=== PATIENT | female | born 1975 | race Caucasian/White ===

== ENCOUNTER → 2016-08-24 | Outpatient (CLI) | payer BC ==
--- NOTE | 2016-08-24 08:48 | US ---
EXAMINATION TYPE: US abdomen complete DATE OF EXAM: 08/24/2016 8:34 AM COMPARISON: NONE CLINICAL HISTORY: Abd Pain R10.9. posterior rt sided pain that radiates anteriorly, worse with some f oods EXAM MEASUREMENTS: Liver Length: 13.3 cm Gallbladder Wall: 0.2 cm CBD: 0.6 cm Spleen: 9.6 cm Right Kidney: 9.5 x 3.5 x 4.7 cm Left Kidney: 9.2 x 5.3 x 5.4 cm Findings: Pancreas: wnl Liver: wnl Gallbladder: wnl Evidence for sonographic Zaragoza's sign: no CBD: upper limits in size, otherwise wnl Spleen: wnl Right Kidney: 0.5cm echogenic foci at the mid to lower pole Left Kidney: wnl Upper IVC: wnl Abd Aorta: wnl The liver is homogenous. The intrahepatic portion of the IVC and proximal abdominal aorta are within normal limits. There is no evidence of cholelithiasis. Common bile duct is unremarkable. The visu alized portions of the pancreas are homogenous. The spleen is unremarkable. Kidneys are symmetric a nd free of hydronephrosis. No renal lesions are seen. Small nonobstructing right-sided renal calculu s. IMPRESSION: 1.Small nonobstructing right-sided renal calculus.
== END | disposition home or self-care (01) ==
LOC: RADUSWWP 08:08
PROVIDERS: ATTEND Family Medicine
DX: N20.0 Calculus of kidney (principal)
CPT/HCPCS: 76700

== ENCOUNTER 2016-08-30 08:52 | Day surgery (SDC) | payer BC ==
[2016-08-24 15:30] VITALS: BMI 23.1
[~2016-08-30 08:52] MED LIST: LACTATED RINGERS 1,000 ML IV SCH; LIDOCAINE 1% 20 ML VIAL (10MG/ML) FOR IV START INTRADERMA PRN
[2016-08-30 09:22] VITALS: RESP 16; TEMP 98.4
[2016-08-30] MEDS ORDERED: GLYCOPYRROLATE 0.2 MG/ML 2 ML VIAL ONE (10:10)
[2016-08-30] MEDS ORDERED: LIDOCAINE 1% INJ 10MG/ML (20 ML MDV) ONE (10:10)
[2016-08-30] MEDS ORDERED: diphenhydrAMINE 50 MG/ML 1 ML VIAL ONE (10:10)
[2016-08-30] MEDS ORDERED: PROPOFOL 10 MG/ML 20 ML VIAL IV ONE (10:10)
--- NOTE | 2016-08-30 10:59 | P.PCN ---
Date of Procedure: 08/30/16 Procedure(s) Performed: Procedure: 1. Esophagogastroduodenoscopy and biopsy. 2. Total colonoscopy. Preoperative diagnosis: Abdominal pain and reflux symptoms and family history of colon cancer reviewed Postoperative diagnosis: 1. Small sliding hiatal hernia with no obvious esophagitis or complicated reflux disease. 2. Mild antral gastritis and mild duodenitis. 3. Diverticulosis of the colon with no evidence of acute diverticulitis, strictures, polyps or cancer. Preparation: HalfLytely prep. Sedation: Was provided by anesthesia. Brief clinical history: The patient is a 40-year-old female who is referred for this evaluation because of abdominal pain and reflux over the last year as well as family history of colon cancer in her father who was diagnosed in his early 50s. The patient has no lower abdominal complaints, bleeding or anemia. This would be her first upper endoscopy and colonoscopy. Procedure: With the patient on her left lateral decubitus position and after informed consent and adequate sedation, I passed the Olympus-GIF 160 video upper endoscope through the cricopharyngeus down the esophagus. GE junction was around 38 cm from the incisors and there was a small less than 1 cm sliding hiatal hernia. The esophagus did not show any obvious erosions or ulcers. There were no strictures or Powell's esophagus. The endoscope was then passed into the stomach which was insufflated with air and inspected in detail including the retroflex view in the cardia. There was some mottling and erythema in the antrum but no ulcers or erosions. Pyloric channel did not show any ulcers. Duodenal bulb showed minimal erythema and friability but no ulcers or erosions. Post bulbar area and descending duodenum showed minimal erythema. I obtained biopsies from the duodenum, antrum and esophagus then the endoscope was withdrawn and I proceeded with the colonoscopy. Perianal area did not show any fissures or fistulas. There were no masses felt on digital rectal examination. The Olympus CFQ 160L video colonoscope was then inserted in the rectum in the usual fashion and advanced to the cecum. The mucosa appeared healthy. There were few diverticular orifices seen scattered in the sigmoid and few more around the hepatic flexure and on the right side with no evidence of acute diverticulitis or strictures. No polyps or tumors were seen. I retroflexed endoscope in the rectum before the endoscope was withdrawn. The patient tolerated the procedure well. Plan: The patient was reassured. Will await biopsy results. She will follow- up with you as planned. With her family history of colon cancer, I recommended repeat colonoscopy in 5 years.
[2016-08-30 11:34] VITALS: BP 124/73; PULSE 70
== END 2016-08-30 11:40 | disposition home or self-care (01) ==
LOC: ORWHC2ENDO 08:52
DX: Z12.11 Encounter for screening for malignant neoplasm of colon (principal); Z80.0 Family history of malignant neoplasm of digestive organs; K29.50 Unspecified chronic gastritis without bleeding; K44.9 Diaphragmatic hernia without obstruction or gangrene; K29.80 Duodenitis without bleeding; K57.30 Diverticulosis of large intestine without perforation or abscess without bleeding; K21.0 Gastro-esophageal reflux disease with esophagitis; Z79.899 Other long term (current) drug therapy; Z88.0 Allergy status to penicillin; Z91.09 Other allergy status, other than to drugs and biological substances
CPT/HCPCS: 81025; 88305; 88342; 43239; J1200; J2001; J2704; G0105; 45378; 99153

== ENCOUNTER → 2017-03-08 | Outpatient (CLI) | payer BC ==
--- NOTE | 2017-03-12 09:40 | MM ---
Reason for exam: screening (asymptomatic). Last mammogram was performed 8 years and 3 months ago. History: Family history of breast cancer in 2 maternal cousins. Took hormonal contraceptives for 10 years beginning at age 15. Physical Findings: A clinical breast exam by your physician is recommended on an annual basis and results should be correlated with mammographic findings. MG Screening Mammo w CAD Bilateral CC and MLO view(s) were taken. Prior study comparison: December 27, 2015, mammogram, performed at [facility]. September 20, 2014, mammogram, performed at [facility]. November 22, 2008, bilateral digital screening mammogram. The breast tissue is heterogeneously dense. This may lower the sensitivity of mammography. Finding: There are typically benign round calcifications in the right breast. There is a chronic nodularity in the left breast. There is no discrete abnormality. ASSESSMENT: Benign, BI-RAD 2 RECOMMENDATION: Routine screening mammogram of both breasts in 1 year.
== END | disposition home or self-care (01) ==
LOC: RADMAMWWP 08:21
PROVIDERS: ATTEND Obstetrics & Gynecology
DX: Z12.31 Encounter for screening mammogram for malignant neoplasm of breast (principal)

== ENCOUNTER → 2018-04-01 | Outpatient (CLI) | payer BC ==
[2018-04-01 16:20] VITALS: BP 125/59; PULSE 61; RESP 16; TEMP 99; BMI 23.8
--- NOTE | 2018-04-01 17:27 | P.HPOB ---
History of Present Illness H&P Date: 04/01/18 Chief Complaint: The patient is here for her routine gynecologic exam and mammogram. This is a 42-year-old G3 PIII with an LMP of 03/24/2018. The patient's is status post vasectomy. The patient is here to reestablish with this office. It has been about 14 months since her last pelvic exam and about 5 years since she was last seen here for her gynecologic exam. She is without gynecologic complaints. She states her menses are regular every month and are getting shorter. Her menses are typically lasting about 3 days. She denies any intermenstrual bleeding. Review of Systems She is getting about 12 pounds over the last 5 years. She denies respiratory, cardiac, or G.I. problems. Past Medical History Past Medical History: GERD/Reflux Additional Past Medical History / Comment(s): Kidney stones in the past. 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 History of Any Multi-Drug Resistant Organisms: None Reported Past Surgical History: No Surgical Hx Reported Additional Past Surgical History / Comment(s): wisdom teeth. Colonoscopy 2017 Past Anesthesia/Blood Transfusion Reactions: No Reported Reaction Past Psychological History: Anxiety, Depression Smoking Status: Never smoker Past Alcohol Use History: Occasional (2 per week) Past Drug Use History: None Reported Additional History: She has been since 1994. 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 - Past Family History Mother Family Medical History: Cancer (Lung cancer) Additional Family Medical History / Comment(s): 2 Maternal cousins had breast cancer Father Family Medical History: Cancer (colon) Medications and Allergies Home Medications Medication Instructions Recorded Confirmed Type Cholecalciferol [Vitamin D3] 1,000 unit PO DAILY 04/01/18 04/01/18 History Citalopram Hydrobromide [CeleXA] 10 mg PO DAILY 04/01/18 04/01/18 History Multivitamins, Thera [Multivitamin 1 tab PO DAILY 04/01/18 04/01/18 History (formulary)] Allergies Allergy/AdvReac Type Severity Reaction Status Date / Time morphine AdvReac Nausea & Verified 08/30/16 09:22 Vomiting Penicillins AdvReac Rash/Hives Verified 08/30/16 09:22 Exam Vital Signs Temp Pulse Resp BP 04/01/18 16:08 99 F 61 16 125/59 Intake and Output 04/01/18 04/01/18 04/01/18 06:59 14:59 22:59 Other: Weight 63.049 kg Height 5'4", BMI 23.9. This is a well-developed well-nourished white female who is alert and oriented times 3 in no acute distress. HEENT: Within normal limits. NECK: Supple without mass or thyromegaly. CHEST AND LUNGS: Clear to auscultation. HEART: Regular rate and rhythm. BREASTS: Are without mass or discharge. AXILLARY EXAM: Negative for adenopathy. BACK: Negative for CVA tenderness. ABDOMEN: Soft, nontender, without palpable masses. PELVIC EXAM: Normal external genitalia. Cervix: endocervical polyp measuring approximately 6 x 8 mm with a darker red appearance. The vagina appear normal. There is no unusual discharge. There is no evidence of prolapse. The uterus is anterior, nongravid size and nontender. There are no palpable adnexal masses or tenderness. RECTAL EXAM: negative for mass or tenderness and is negative for occult blood. EXTREMITIES: Nontender. IMPRESSION: 1. 42-year-old female whose status post vasectomy with small endocervical polyp on exam today. 2. Otherwise unremarkable gynecologic exam. PLAN: 1. Pap smear was performed. 2. Self breast awareness was discussed with the patient. 3. Screening mammogram will be done today. 4. We have discussed options for the endocervical polyp including observation versus office removal. The patient would like to have this removed. She will make an appointment for its removal. We will also send it for pathological examination. 5. Osteoporosis prevention was discussed. 6. She will return in one year as well.
--- NOTE | 2018-04-03 09:01 | MM ---
Reason for exam: screening (asymptomatic). Last mammogram was performed 1 year and 1 month ago. History: Family history of breast cancer in 2 maternal cousins. Took hormonal contraceptives for 10 years beginning at age 15. Physical Findings: A clinical breast exam by your physician is recommended on an annual basis and results should be correlated with mammographic findings. MG 3D Screening Mammo W/Cad Bilateral CC and MLO view(s) were taken. Prior study comparison: March 08, 2017, bilateral MG screening mammo w CAD. December 27, 2015, mammogram, performed at [facility]. The breast tissue is heterogeneously dense. This may lower the sensitivity of mammography. No significant changes when compared with prior studies. ASSESSMENT: Benign, BI-RAD 2 RECOMMENDATION: Routine screening mammogram of both breasts in 1 year.
== END | disposition home or self-care (01) ==
LOC: WWCWWP 16:00
PROVIDERS: ATTEND Obstetrics & Gynecology
DX: Z12.31 Encounter for screening mammogram for malignant neoplasm of breast (principal)
CPT/HCPCS: 77063; 77067

== ENCOUNTER → 2018-04-09 | Day surgery (SDC) | payer BC ==
[2018-04-09 08:19] VITALS: BP 113/57; PULSE 57; TEMP 97.9; BMI 23.8
--- NOTE | 2018-04-09 08:51 | P.PCN ---
Date of Procedure: 04/09/18 Preoperative Diagnosis: endoervical polyp Postoperative Diagnosis: Same Procedure(s) Performed: Endocervical polyp removal Anesthesia: none Surgeon: Lew Tavares Estimated Blood Loss (ml): 0 Pathology: other (Endocervical polyp) Condition: stable Disposition: same day Indications for Procedure: This was a 42-year-old female who was found to have an endocervical polyp on her routine gynecologic exam. Operative Findings: Approximately 10 x 7 x 4 mm endocervical polyp was found. The rest of the cervix appeared normal. Description of Procedure: The procedure was discussed with the patient. Possible risks including infection and bleeding were reviewed with the patient. All questions were answered. The patient was placed in the lithotomy position and the speculum was inserted into the vagina. Betadine solution was applied to the cervix and vagina. A ring forcep instrument was used to grasp the entire visible polyp and the polyp was twisted off. A Kevorkian curette was used to gently scrape the Endo cervix from the approximate area where it was attached. There was no bleeding. The patient tolerated the procedure well. Polyp was sent for pathological evaluation. There were no complications.
--- NOTE | 2018-04-09 08:54 | P.PN ---
Progress Note - Text Progress Note Date: 04/09/18 OUTPATIENT FOLLOW-UP NOTE TEST(S)/RESULTS: Pap smear from 04/01/2018 was negative. METHOD OF NOTIFICATION: the patient was notified in person. PATIENT COMMENTS: the patient has no questions about this. DIAGNOSIS: negative Pap smear DISCUSSION: the patient underwent an endocervical polyp removal today. Please see that procedure note for details. PLAN: she will return one year.
--- NOTE | 2018-04-15 11:38 | P.PN ---
Progress Note - Text Progress Note Date: 04/15/18 OUTPATIENT FOLLOW-UP NOTE TEST(S)/RESULTS: cervical polyp removal done on 04/09/2018 had a benign pathology METHOD OF NOTIFICATION: patient was notified by phone. PATIENT COMMENTS: the patient understands the results. She denies any problems after the procedure. She stated she did started. Shortly after the procedure. DIAGNOSIS: benign endocervical polyp. DISCUSSION: PLAN: she will return in one year.
== END ==
LOC: WWCWWP 08:08
PROVIDERS: ATTEND Obstetrics & Gynecology
DX: Z53.9 Procedure and treatment not carried out, unspecified reason (principal)
CPT/HCPCS: 88305

== ENCOUNTER → 2019-04-07 | Outpatient (CLI) | payer BC ==
[2019-04-07 09:33] VITALS: BP 105/76; PULSE 72; RESP 16; TEMP 98; BMI 24.2
--- NOTE | 2019-04-07 10:09 | P.HPOB ---
History of Present Illness H&P Date: 04/07/19 Chief Complaint: The patient is here for her routine gynecologic exam and ma mmogram. This is a 43 year old G3 PIII with an LMP of 03/31/2019. The patient's is status post vasectomy. The patient states she has noticed a slight vaginal discharge and slight odor intermittently over the past 2 months. She thinks she may have bacterial vaginosis which she had once before. She has slight pruritus. The discharge is thin and occasionally yellowish in appearance. She denies any new sexual partners. She is otherwise without complaints. Review of Systems The patient's weight has been stable over the last year. She denies respiratory, cardiac, or G.I. problems. Past Medical History Past Medical History: GERD/Reflux Additional Past Medical History / Comment(s): Kidney stones in the past. 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 History of Any Multi-Drug Resistant Organisms: None Reported Past Surgical History: No Surgical Hx Reported Additional Past Surgical History / Comment(s): wisdom teeth. Colonoscopy 2017 Past Anesthesia/Blood Transfusion Reactions: No Reported Reaction Past Psychological History: Anxiety, Depression Smoking Status: Never smoker Past Alcohol Use History: Occasional (2 or 3 per week.) Past Drug Use History: None Reported Additional History: She has been since 1994. 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 - Past Family History Mother Family Medical History: Cancer Additional Family Medical History / Comment(s): Lung cancer. 2 Maternal cousins had breast cancer Father Family Medical History: Cancer Additional Family Medical History / Comment(s): Colon cancer. Medications and Allergies Home Medications Medication Instructions Recorded Confirmed Type Cholecalciferol [Vitamin D3] 1,000 unit PO DAILY 04/01/18 04/07/19 History Multivitamins, Thera [Multivitamin 1 tab PO DAILY 04/01/18 04/07/19 History (formulary)] Allergies Allergy/AdvReac Type Severity Reaction Status Date / Time morphine AdvReac Nausea & Verified 04/07/19 09:18 Vomiting Penicillins AdvReac Rash/Hives Verified 04/07/19 09:18 Exam Vital Signs Temp Pulse Resp BP Pulse Ox 04/07/19 09:20 98.0 F 72 16 105/76 99 Height 5'4", weight 141 pounds, BMI 24.2. This is a well-developed well-nourished white female who is alert and oriented times 3 in no acute distress. HEENT: Within normal limits. NECK: Supple without mass or thyromegaly. CHEST AND LUNGS: Clear to auscultation. HEART: Regular rate and rhythm. BREASTS: Are without mass or discharge. AXILLARY EXAM: Negative for adenopathy. BACK: Negative for CVA tenderness. ABDOMEN: Soft, nontender, without palpable masses. PELVIC EXAM: Normal external genitalia. Cervix and vagina appear normal. There is no evidence of a cervical polyp. There is a small thin mucousy discharge without significant odor. There is no evidence of prolapse. The uterus is midposition, nongravid size and nontender. There are no palpable adnexal masses or tenderness. RECTAL EXAM: negative for mass or tenderness and is negative for occult blood. EXTREMITIES: Nontender. IMPRESSION: 1. 43 year old female with probable mild bacterial vaginosis with intermittent vaginal odor and slight vaginal discharge today. 2. Otherwise unremarkable gynecologic exam. 3. The patient's is status post vasectomy. PLAN: 1. Pap smear was deferred since she had normal one on 03/24/2018. 2. Self breast awareness was discussed with the patient. 3. Screening mammogram will be done today. 4. The patient will be treated with MetroGel veg. She will insert one applicator intravaginally QHS times 5 days. The electronic prescription will be sent to [facility] pharmacy in [place]. She will call if her symptoms do not improve, or if problems. 5. She was advised to return in one year for her annual well woman exam.
--- NOTE | 2019-04-08 09:44 | MM ---
Reason for exam: screening (asymptomatic). Last mammogram was performed 1 year ago. History: Family history of breast cancer in 2 maternal cousins. Took hormonal contraceptives for 10 years beginning at age 15. Physical Findings: A clinical breast exam by your physician is recommended on an annual basis and results should be correlated with mammographic findings. MG 3D Screening Mammo W/Cad Bilateral CC and MLO view(s) were taken. XCCL view(s) were taken of the right breast. Prior study comparison: April 01, 2018, bilateral MG 3d screening mammo w/cad. March 08, 2017, bilateral MG screening mammo w CAD. The breast tissue is heterogeneously dense. This may lower the sensitivity of mammography. There is a 7mm right upper outer quadrant mass 5cm from nipple. No suspicious abnormality on the left. ASSESSMENT: Incomplete: need additional imaging evaluation, BI-RAD 0 RECOMMENDATION: Ultrasound of the right breast. (upper outer quadrant) [facility] will attempt to contact patient to return for ultrasound.
== END | disposition home or self-care (01) ==
LOC: WWCWWP 09:07
PROVIDERS: ATTEND Obstetrics & Gynecology
DX: Z12.31 Encounter for screening mammogram for malignant neoplasm of breast (principal)
CPT/HCPCS: 77063; 77067

== ENCOUNTER → 2019-04-15 | Outpatient (CLI) | payer BC ==
--- NOTE | 2019-04-15 09:40 | USB ---
Reason for exam: additional evaluation requested from abnormal screening. History: Family history of breast cancer in 2 maternal cousins. Took hormonal contraceptives for 10 years beginning at age 15. Physical Findings: Nurse did not find any significant physical abnormalities on exam. US Breast Workup Limited RT Right limited breast ultrasound including focal area of concern, retroareolar and axilla demonstrates a 0.8 x 0.8 x 0.5cm mixed lesion at 10 o'clock, complicated cyst with good increased through transmission. Correlates with mammogram. These results were verbally communicated with the patient and result sheet given to the patient on 04/15/19. ASSESSMENT: Benign, BI-RAD 2 RECOMMENDATION: Return to routine screening mammogram schedule for both breasts.
== END | disposition home or self-care (01) ==
LOC: RADUSWWP 06:49
PROVIDERS: ATTEND Obstetrics & Gynecology
DX: R92.8 Other abnormal and inconclusive findings on diagnostic imaging of breast (principal)

== ENCOUNTER → 2020-04-26 | Outpatient (CLI) | payer BC ==
--- NOTE | 2020-04-28 10:40 | MM ---
Reason for exam: screening (asymptomatic). Last mammogram was performed 1 year and 1 month ago. History: Family history of breast cancer in 2 maternal cousins. Took hormonal contraceptives for 10 years beginning at age 15. Physical Findings: A clinical breast exam by your physician is recommended on an annual basis and results should be correlated with mammographic findings. MG 3D Screening Mammo W/Cad Bilateral CC, MLO, and XCCL view(s) were taken. Prior study comparison: April 07, 2019, bilateral MG 3d screening mammo w/cad. April 01, 2018, bilateral MG 3d screening mammo w/cad. Focal asymmetry right outer middle CC view, possible summation. ASSESSMENT: Incomplete: need additional imaging evaluation, BI-RAD 0 RECOMMENDATION: Special view mammogram of the right breast. If lesion persists on supplemental views, image directed ultrasound is recommended. [facility] will attempt to contact patient to return for supplemental views and ultrasound if indicated.
== END | disposition home or self-care (01) ==
LOC: RADMAMWWP 16:08
PROVIDERS: ATTEND Obstetrics & Gynecology
DX: Z12.31 Encounter for screening mammogram for malignant neoplasm of breast (principal)
CPT/HCPCS: 77063; 77067

== ENCOUNTER → 2020-04-26 | Outpatient (CLI) | payer BC ==
[2020-04-26 15:36] VITALS: BP 127/71; PULSE 83; RESP 18; TEMP 98.7
--- NOTE | 2020-04-26 16:17 | P.HPOB ---
History of Present Illness H&P Date: 04/26/20 Chief Complaint: The patient is here for her routine gynecologic exam and ma mmogram. This is a 44-year-old with an LMP of 04/07/2020. The patient has been noticing mild changes in her body and menstrual cycle. Menses seem fairly regular each month and are now lasting about 2-3 days which is shorter than in the past. She tends to get a bit emotional right before her menstrual period starts and then it improves. She has noticed occasional warm flashes which are not very severe or predictable. She can have 1 heavier day of flow occasionally. Her is status post vasectomy. She is otherwise without complaints. Review of Systems The patient's weight has been stable over the last year. She denies respiratory, cardiac, or G.I. problems. Past Medical History Past Medical History: GERD/Reflux Additional Past Medical History / Comment(s): Kidney stones in the past. 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 History of Any Multi-Drug Resistant Organisms: None Reported Past Surgical History: Appendectomy Additional Past Surgical History / Comment(s): wisdom teeth. Appendectomy with umbilical hernia repair 12/2019. Colonoscopy 2017(next after 5yr). Past Anesthesia/Blood Transfusion Reactions: No Reported Reaction Past Psychological History: Anxiety, Depression Smoking Status: Never smoker Past Alcohol Use History: Occasional (3 per week) Past Drug Use History: None Reported Additional History: She has been since 1994. 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 - Past Family History Mother Family Medical History: Cancer Additional Family Medical History / Comment(s): Lung cancer. 2 Maternal cousins had breast cancer Father Family Medical History: Cancer Additional Family Medical History / Comment(s): Colon cancer. Medications and Allergies Home Medications Medication Instructions Recorded Confirmed Type Cholecalciferol [Vitamin D3] 1,000 unit PO DAILY 04/01/18 04/26/20 History Multivitamins, Thera [Multivitamin 1 tab PO DAILY 04/01/18 04/26/20 History (formulary)] Allergies Allergy/AdvReac Type Severity Reaction Status Date / Time morphine AdvReac Nausea & Verified 04/26/20 15:36 Vomiting Penicillins AdvReac Rash/Hives Verified 04/26/20 15:36 Exam Vital Signs Temp Pulse Resp BP Pulse Ox 04/26/20 15:30 98.7 F 83 18 127/71 99 Intake and Output 04/26/20 04/26/20 04/26/20 06:59 14:59 22:59 Other: Weight 64.41 kg Height 5 feet 4 inches, weight 142 pounds, BMI 24.4. This is a well-developed well-nourished white female who is alert and oriented times 3 in no acute distress. HEENT: Within normal limits. NECK: Supple without mass or thyromegaly. CHEST AND LUNGS: Clear to auscultation. HEART: Regular rate and rhythm. BREASTS: Are without mass or discharge. AXILLARY EXAM: Negative for adenopathy. BACK: Negative for CVA tenderness. ABDOMEN: Soft, nontender, without palpable masses. PELVIC EXAM: Normal external genitalia. Cervix and vagina appear normal. There is no unusual discharge. There is no evidence of prolapse. The uterus is midposition, nongravid size and nontender. There are no palpable adnexal masses or tenderness. RECTAL EXAM: negative for mass or tenderness and is negative for occult blood. EXTREMITIES: Nontender. IMPRESSION: 1. 44-year-old premenopausal female whose is status post vasectomy with some mild symptoms that may indicate very early perimenopausal changes. 2. Normal gynecologic exam. PLAN: 1. Pap smear was performed. 2. Self breast awareness was discussed with the patient. 3. Screening mammogram will be done today. 4. Osteoporosis prevention was discussed. I have stressed the importance of adequate calcium, vitamin D and regular exercise. Recommended amounts of calcium and vitamin D were also discussed. 5. We have discussed possible perimenopausal symptoms and changes that she can expect. She will call if she is having menstrual problems. 6. She was advised to return in one year for her annual well woman exam.
--- NOTE | 2020-05-11 14:16 | P.PN ---
Progress Note - Text Progress Note Date: 05/11/20 OUTPATIENT FOLLOW-UP NOTE TEST(S)/RESULTS: Pap smear from 04/26/2020 was negative. METHOD OF NOTIFICATION: The patient was notified by phone. PATIENT COMMENTS: [] DIAGNOSIS: Negative Pap smear. DISCUSSION: The patient has follow-up regarding her abnormal mammogram and has a breast biopsy scheduled for 05/25/2020. She will then follow up with Dr. Cast. PLAN: As above.
== END | disposition home or self-care (01) ==
LOC: WWCWWP 15:09
PROVIDERS: ATTEND Obstetrics & Gynecology
DX: Z53.9 Procedure and treatment not carried out, unspecified reason (principal)

== ENCOUNTER → 2020-05-09 | Outpatient (CLI) | payer BC ==
--- NOTE | 2020-05-09 11:32 | MM ---
Reason for exam: additional evaluation requested from abnormal screening. Last mammogram was performed less than 1 month ago. History: Family history of breast cancer in 2 maternal cousins. Took hormonal contraceptives for 10 years beginning at age 15. Physical Findings: Nurse did not find any significant physical abnormalities on exam. MG 3D Work Up W/Cad RT Spot compression CC and LM view(s) were taken of the right breast. Prior study comparison: April 26, 2020, bilateral MG 3d screening mammo w/cad. April 07, 2019, bilateral MG 3d screening mammo w/cad. Finding: There is a 12 mm equal density (isodense), oval mass in the right breast. These results were verbally communicated with the patient and result sheet given to the patient on 05/09/20. ASSESSMENT: Incomplete: need additional imaging evaluation, BI-RAD 0 RECOMMENDATION: Ultrasound of the right breast.
--- NOTE | 2020-05-09 11:39 | USB ---
Reason for exam: additional evaluation requested from abnormal screening. History: Family history of breast cancer in 2 maternal cousins. Took hormonal contraceptives for 10 years beginning at age 15. US Breast Workup Limited RT Right limited breast ultrasound including focal area of concern, retroareolar and axilla demonstrates A 8 X 5 X 9mm oval, solid, hypoechoic lesion at 10 o'clock, unchanged from previous. These results were verbally communicated with the patient and result sheet given to the patient on 05/09/20. ASSESSMENT: Suspicious, BI-RAD 4 RECOMMENDATION: Ultrasound core biopsy of the right breast. Called Dr. Tavares's office with mammographic findings and has scheduled an appointment for the patient for 06/01/20 at 4:[address] Cast. Biopsy scheduled for 05/25/20 at 1:00. PRELIMINARY REPORT CALLED AND FAXED TO DR. CAST ON 05/09/20.
== END | disposition home or self-care (01) ==
LOC: RADMAMWWP 07:24
PROVIDERS: ATTEND Obstetrics & Gynecology
DX: R92.8 Other abnormal and inconclusive findings on diagnostic imaging of breast (principal)
CPT/HCPCS: 77061; 77065

== ENCOUNTER → 2020-05-25 | Day surgery (SDC) | payer BC ==
[2020-05-25 12:37] VITALS: RESP 16; TEMP 98.5
[2020-05-25 15:08] VITALS: BP 135/89; PULSE 85
--- NOTE | 2020-05-25 17:47 | USB ---
EXAMINATION TYPE: US biopsy breast VAD RT DATE OF EXAM: 05/25/2020 CLINICAL HISTORY: R92.8 Abnormal mammogram. TECHNIQUE: Ultrasound guided core biopsy of right breast. COMPARISON: Right breast ultrasound 05/09/2020. Mammogram 05/09/2020. FINDINGS: The procedure of ultrasound guided core biopsy was explained to the patient. Benefits, alt ernatives, and risks were discussed. An informed consent was then obtained. The patient was placed in left posterior oblique positioning for imaging and for the procedure. The overlying skin was prepped and draped in usual sterile fashion. Lidocaine buffered with bicarbonate was used as anesthetic into the skin and subcutaneous tissue up to area of concern in the right breas t 10:00. Under ultrasound guidance, a 12-gauge vacuum assisted biopsy gun device was used to obtain 3 core sowmya ples. Following this, a biopsy clip was left in lesion. The patient tolerated the procedure well without any immediate complication. The patient was kept in the radiology department for short stay after the procedure and then discharged home in stable condi tion. IMPRESSION: Successful, uncomplicated ultrasound guided core biopsy of area of concern in the right b reast 10:00, full pathology results to follow.
== END ==
LOC: RADUSWWP 11:54
PROVIDERS: ATTEND Surgery
DX: D24.1 Benign neoplasm of right breast (principal); N62 Hypertrophy of breast; R92.8 Other abnormal and inconclusive findings on diagnostic imaging of breast; Z88.5 Allergy status to narcotic agent; Z88.0 Allergy status to penicillin
CPT/HCPCS: 88305; 77065; 19083; A4648; J2001

== ENCOUNTER → 2021-05-02 | Outpatient (CLI) | payer BC ==
--- NOTE | 2021-05-02 14:39 | MM ---
Reason for exam: additional evaluation requested from prior study. Last mammogram was performed 11 months ago. History: Family history of breast cancer in 2 maternal cousins at age 40. Benign US biopsy breast VAD RT of the right breast, May 25, 2020. Took hormonal contraceptives for 26 years beginning at age 15. Physical Findings: Nurse did not find any significant physical abnormalities on exam. MG 3D Diag Mammo W/Cad SCOTT Bilateral CC and MLO view(s) were taken. Prior study comparison: May 25, 2020, right breast MG diagnostic mammo RT wo CAD. May 09, 2020, right breast MG 3d work up w/cad RT. April 07, 2019, bilateral MG 3d screening mammo w/cad. April 01, 2018, bilateral MG 3d screening mammo w/cad. The breast tissue is heterogeneously dense. This may lower the sensitivity of mammography. Previous mammotome biopsy in the right breast. Grouped microcalcifications lateral left breast. 1.2cm low density circumscribed nodule lateral right breast. These results were verbally communicated with the patient and result sheet given to the patient on 05/02/21. ASSESSMENT: Incomplete: need additional imaging evaluation, BI-RAD 0 RECOMMENDATION: Ultrasound of the right breast.
--- NOTE | 2021-05-02 14:40 | USB ---
Reason for exam: additional evaluation requested from abnormal screening. History: Family history of breast cancer in 2 maternal cousins at age 40. Benign US biopsy breast VAD RT of the right breast, May 25, 2020. Took hormonal contraceptives for 26 years beginning at age 15. US Breast Limited RT Technologist: Esther Carrizales Right limited breast ultrasound including focal area of concern, retroareolar and axilla demonstrates a 9mm hypoechoic area at 11 o'clock with clip from prior biopsy. Scanned 9-12 o'clock. These results were verbally communicated with the patient and result sheet given to the patient on 05/02/21. ASSESSMENT: Probably benign, BI-RAD 3 RECOMMENDATION: Follow-up diagnostic mammogram of the right breast in 6 months.
== END | disposition home or self-care (01) ==
LOC: RADMAMWWP 12:49
PROVIDERS: ATTEND Surgery
DX: R92.1 Mammographic calcification found on diagnostic imaging of breast (principal); Z80.3 Family history of malignant neoplasm of breast
CPT/HCPCS: 77062; 77066

== ENCOUNTER → 2021-05-16 | Outpatient (CLI) | payer BC ==
[2021-05-16 14:29] VITALS: BP 110/75; PULSE 73; RESP 12; TEMP 97.4
--- NOTE | 2021-05-16 15:08 | P.HPOB ---
History of Present Illness H&P Date: 05/16/21 Chief Complaint: The patient is here for her routine gynecologic exam. This is a 45-year-old with an LMP of 04/27/2021. The patient is without gynecologic complaints. Menstrual periods are regular every month, but can vary in length from 3-6 days. Her is status post vasectomy. Review of Systems She is getting about 6 pounds over the past year. She denies respiratory or GI problems. Cardiac: A while back, she had occasional palpitations and did have a workup through her PCP and was unremarkable according to the patient. These did resolve. Past Medical History Past Medical History: GERD/Reflux Additional Past Medical History / Comment(s): kidney stones. 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 History of Any Multi-Drug Resistant Organisms: None Reported Past Surgical History: Adenoidectomy, Appendectomy Additional Past Surgical History / Comment(s): wisdom teeth. Colonoscopy 2017(next after 5yr) Past Anesthesia/Blood Transfusion Reactions: No Reported Reaction Past Psychological History: Anxiety, Depression Smoking Status: Never smoker Past Alcohol Use History: Occasional (3 per week) Past Drug Use History: None Reported Additional History: She has been since 1994. 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 - Past Family History Mother Family Medical History: Cancer Additional Family Medical History / Comment(s): Lung cancer. 2 Maternal cousins had breast cancer Father Family Medical History: Cancer Additional Family Medical History / Comment(s): Colon cancer. Medications and Allergies Home Medications Medication Instructions Recorded Confirmed Type Cholecalciferol [Vitamin D3] 1,000 unit PO DAILY 04/01/18 05/16/21 History Multivitamins, Thera [Multivitamin 1 tab PO DAILY 04/01/18 05/16/21 History (formulary)] Allergies Allergy/AdvReac Type Severity Reaction Status Date / Time morphine AdvReac Nausea & Verified 05/25/20 12:24 Vomiting Penicillins AdvReac Rash/Hives Verified 05/25/20 12:24 Exam Vital Signs Temp Pulse Resp BP Pulse Ox 05/16/21 14:19 97.4 F L 73 12 110/75 98 Intake and Output 05/16/21 05/16/21 05/16/21 06:59 14:59 22:59 Other: Weight 67.132 kg Height 5 feet 4 inches, weight 148 pounds, BMI 25.4. This is a well-developed well-nourished white female who is alert and oriented times 3 in no acute distress. HEENT: Within normal limits. NECK: Supple without mass or thyromegaly. CHEST AND LUNGS: Clear to auscultation. HEART: Regular rate and rhythm. BREASTS: Are without mass or discharge. AXILLARY EXAM: Negative for adenopathy. BACK: Negative for CVA tenderness. ABDOMEN: Soft, nontender, without palpable masses. PELVIC EXAM: Normal external genitalia. Cervix and vagina appear normal. There is no unusual discharge. There is no evidence of prolapse. The uterus is midposition, multiparous, nongravid size and nontender. There are no palpable adnexal masses or tenderness. RECTAL EXAM: Rectovaginal exam is negative for mass or tenderness and is negative for occult blood. EXTREMITIES: Nontender. IMPRESSION: 1. 45-year-old premenopausal female with normal gynecologic exam. 2. Recent abnormal mammogram requiring a right breast workup which was probably benign. 6 month right diagnostic mammogram was recommended. PLAN: 1. Pap smear was deferred since she had a normal one on 04/26/2020. 2. Self breast awareness was discussed with the patient. We have also discussed symptoms associated with inflammatory breast cancer. 3. She will be due for a 6 month right diagnostic mammogram in approximately November 2021. The order slip was given to the patient for this. 4. Osteoporosis prevention was discussed. I have stressed the importance of adequate calcium, vitamin D and regular exercise. Recommended amounts of calcium and vitamin D were also discussed. 5. She was advised to return in one year for her annual well woman exam.
== END ==
LOC: WWCWWP 13:41
PROVIDERS: ATTEND Obstetrics & Gynecology
DX: Z01.419 Encounter for gynecological examination (general) (routine) without abnormal findings (principal); R92.8 Other abnormal and inconclusive findings on diagnostic imaging of breast; F32.9 Major depressive disorder, single episode, unspecified; F41.9 Anxiety disorder, unspecified; Z88.0 Allergy status to penicillin; Z88.5 Allergy status to narcotic agent

== ENCOUNTER → 2021-10-09 | Outpatient (CLI) | payer BC ==
--- NOTE | 2021-10-09 14:49 | MM ---
Reason for exam: follow-up at short interval from prior study. Last mammogram was performed 5 months ago. History: Family history of breast cancer in 2 maternal cousins at age 40. Benign US biopsy breast VAD RT of the right breast, May 25, 2020. Took hormonal contraceptives for 26 years beginning at age 15. Physical Findings: A clinical breast exam by your physician is recommended on an annual basis and results should be correlated with mammographic findings. MG 3D Diag Mammo W/Cad RT CC and MLO view(s) were taken of the right breast. Prior study comparison: April 26, 2020, bilateral MG 3d screening mammo w/cad. April 07, 2019, bilateral MG 3d screening mammo w/cad. There are scattered fibroglandular densities. No significant new findings when compared with previous films. These results were verbally communicated with the patient and result sheet given to the patient on 10/09/21. ASSESSMENT: Benign, BI-RAD 2 RECOMMENDATION: Routine screening mammogram of both breasts in 6 months. Back on schedule.
== END | disposition home or self-care (01) ==
LOC: RADMAMWWP 13:15
PROVIDERS: ATTEND Surgery
DX: R92.8 Other abnormal and inconclusive findings on diagnostic imaging of breast (principal); Z80.3 Family history of malignant neoplasm of breast
CPT/HCPCS: 77061; 77065

== ENCOUNTER → 2022-04-13 | Outpatient (CLI) | payer BC ==
--- NOTE | 2022-04-20 18:13 | MM ---
Reason for Exam: Screening (asymptomatic). Last screening mammogram was performed 12 month(s) ago. Patient History: Menarche at age 9. First Full-Term at age 18. Hormonal Contraceptives for 26 years from age 15 until age 36. 05/25/2020, Benign Core Biopsy on the right side. Maternal cousin had breast cancer, age 40. Maternal cousin had breast cancer, age 40. Last menstrual period: 04/06/2022 Risk Values: Fabiola 5 year model risk: 1.2%. NCI Lifetime model risk: 10.7%. Prior Study Comparison: 05/25/2020 Right Diagnostic Mammogram, [facility]. 05/02/2021 Bilateral Diagnostic Mammogram, [facility]. 10/09/2021 Right Diagnostic Mammogram, [facility]. Tissue Density: There are scattered fibroglandular densities. Findings: Analyzed By CAD. Right breast biopsy clip. There is no suspicious group of microcalcifications or new suspicious mass in either breast. Overall Assessment: Benign, BI-RAD 2 Management: Screening Mammogram of both breasts in 1 year. A clinical breast exam by your physician is recommended on an annual basis and results should be correlated with mammographic findings. Electronically signed and approved by: Tony Shrestha DO
== END | disposition home or self-care (01) ==
LOC: RADMAMWWP 16:18
PROVIDERS: ATTEND Surgery
DX: Z12.31 Encounter for screening mammogram for malignant neoplasm of breast (principal); Z80.3 Family history of malignant neoplasm of breast; Z98.890 Other specified postprocedural states
CPT/HCPCS: 77063; 77067

== ENCOUNTER → 2023-07-17 | Outpatient (CLI) | payer BC ==
--- NOTE | 2023-07-18 10:14 | MM ---
Reason for Exam: Screening (asymptomatic). Last mammogram was performed 1 year(s) and 3 month(s) ago. Patient History: Menarche at age 9. First Full-Term at age 18. Hormonal Contraceptives for 26 years from age 15 until age 36. 05/25/2020, Benign Core Biopsy on the right side. Maternal cousin had breast cancer, age 40. Maternal cousin had breast cancer, age 40. Last menstrual period: 02/02/2023 Risk Values: Fabiola 5 year model risk: 1.2%. NCI Lifetime model risk: 10.5%. Prior Study Comparison: 05/02/2021 Bilateral Diagnostic Mammogram, [facility]. 10/09/2021 Right Diagnostic Mammogram, [facility]. 04/13/2022 Bilateral MG 3D screening mammo w/cad, [facility]. Tissue Density: The breast tissue is heterogeneously dense. This may lower the sensitivity of mammography. Findings: Analyzed By CAD. Right breast biopsy clip. There is no suspicious group of microcalcifications or new suspicious mass. Overall Assessment: Benign, BI-RAD 2 Management: Screening Mammogram of both breasts in [address] [facility] will attempt to contact patient to return for supplemental views and ultrasound if indicated. Patient should continue monthly self-breast exams. A clinical breast exam by your physician is recommended on an annual basis. This exam should not preclude additional follow-up of suspicious palpable abnormalities. Note on Fabiola scores and lifetime risk: 1. A Fabiola score greater than 3% is considered moderate risk. If this is the case, consider specialist referral to assess eligibility for a risk reducing agent. 2. If overall lifetime risk for the development of breast cancer is 20% or higher, the patient may qualify for future screening with alternating mammogram and breast MRI. Electronically signed and approved by: Tony Shrestha DO
== END | disposition home or self-care (01) ==
LOC: RADMAMWWP 08:30
PROVIDERS: ATTEND Obstetrics & Gynecology
DX: Z12.31 Encounter for screening mammogram for malignant neoplasm of breast (principal); Z80.3 Family history of malignant neoplasm of breast
CPT/HCPCS: 77063; 77067

== ENCOUNTER → 2024-09-02 | Outpatient (CLI) | payer BC ==
--- NOTE | 2024-09-02 08:47 | MM ---
Reason for Exam: Screening (asymptomatic). Last mammogram was performed 1 year(s) and 1 month(s) ago. Patient History: Menarche at age 9. First Full-Term at age 18. Perimenopausal. Hormonal Contraceptives for 21 years, 1 month, from age 15 until age 36. 05/25/2020, Benign Core Biopsy on the right side. Maternal cousin had breast cancer, age 40. Maternal cousin had breast cancer, age 40. Maternal aunt had breast cancer, age 70. Risk Values: Fabiola 5 year model risk: 1.1%. NCI Lifetime model risk: 10.3%. Prior Study Comparison: 10/09/2021 Right Diagnostic Mammogram, [facility]. 04/13/2022 Bilateral MG 3D screening mammo w/cad, [facility]. 07/17/2023 Bilateral MG 3D screening mammo w/cad, [facility]. Tissue Density: The breasts are heterogeneously dense, which may obscure small masses. Findings: Analyzed By CAD. Right breast biopsy clip. Right breast: There is no suspicious group of microcalcifications or new suspicious mass. Benign-appearing calcifications right breast. Left breast: There is no suspicious group of microcalcifications or new suspicious mass. Overall Assessment: Benign, BI-RAD 2 Management: Screening Mammogram of both breasts in [address] [facility] will attempt to contact patient to return for supplemental views and ultrasound if indicated. Patient should continue monthly self-breast exams. A clinical breast exam by your physician is recommended on an annual basis. This exam should not preclude additional follow-up of suspicious palpable abnormalities. Note on Fabiola scores and lifetime risk: 1. A Fabiola score greater than 3% is considered moderate risk. If this is the case, consider specialist referral to assess eligibility for a risk reducing agent. 2. If overall lifetime risk for the development of breast cancer is 20% or higher, the patient may qualify for future screening with alternating mammogram and breast MRI. [facility], , 09/02/2024 8:43 AM. Electronically signed and approved by: Tony Shrestha DO
== END | disposition home or self-care (01) ==
LOC: RADMAMWWP 07:58
PROVIDERS: ATTEND Family Medicine
DX: Z12.31 Encounter for screening mammogram for malignant neoplasm of breast (principal); R92.333 Mammographic heterogeneous density, bilateral breasts; Z80.3 Family history of malignant neoplasm of breast
CPT/HCPCS: 77063; 77067